=== PATIENT | female | born 1995 | race Caucasian/White ===

== ENCOUNTER 2024-07-23 14:26 | Outpatient (CLI) | payer BC, SELFPAY ==
--- NOTE | ~2024-07-23 | US_ITS ---
EXAMINATION: US pelvic complete w TV INDICATION: Pelvic and perineal pain Comparison:No prior studies for comparison. TECHNIQUE: Multiple transabdominal and endovaginal sonographic images of the pelvis performed. FINDINGS: The uterus measures 7 x 4.8 x 3.5 cm. There is a small amount of fluid in the endometrium e xtending to the cervix. The endometrial complex measures 14 mm. The right ovary is removed. Left ovary is not visualized. Small amount of free fluid in the pelvic cu l-de-sac. There is no free fluid in the pelvis. There are no abnormal masses seen on either side. IMPRESSION: 1. Thickened endometrium with trace endometrial fluid. Reviewed, dictated and finalized at location []
--- OUTSIDE RECORDS SUMMARY | 2024-07-23 14:30 | XMS_ITS | Data Portability ---
Author Organization [facility] [employer] , [facility] Address [address] [place] [address] Assessment No assessment recorded. Plan of Treatment Reminders Order Date Submit Date Provider Last Modified By Organization Details Last Modified Time Details Appointments None recorded. Lab test, urine 2024 025 [email or web address] [facility], [address] [place], [address], 12:50:49 Referral None recorded. Procedures None recorded. Surgeries None recorded. Imaging US, transvagina l 2024 025 [email or web address] Not available 13:40:27 Medication Orders None recorded. Patient TargetsNo targets recorded. Patient InstructionsNo instructions recorded. Reason for Referral None Reported. Results Created Date Observation Date Name Description Value Unit Range Abnormal Flag Note LastModifiedBy Organization Detail LastModifiedTime 04/18/1904/18/2024 pregn jewel test, urine HCG positi ve Not Available [facility] [address] [place], [address], 04/16/2024 20:58:17 04/09/1904/09/2024 US, obste tric No observ ation record ed. [email or web address] [address] [address], [place], [address], 04/10/2024 10:44:45 04/18/19 25 04/18/2024 US, trans vagin al No observ ation record ed. [email or web address] [facility] [address], [place], [address], 04/20/2024 08:03:53 Result Notes None recorded. Procedures Surgical History Date Name Laterality Status Provider Name and Address Organization Details Recorded Time 04/02/2024 Date of Last Pap Smear completed Meryl Perry [facility] 04/18/2024 11:44:57 Imaging Results Imaging Date Name Status LastModified by Organization Details LastModified Time 04/09/2024 US, obstetric completed [facility] [address], [place], [address], 04/10/2024 10:44:45 04/18/2024 US, transvaginal completed [email or web address] [address], [place], [address], 04/20/2024 08:03:53 Procedure Notes None recorded. Medical Equipment None Reported. Allergies Allergen ID Allergen Name Allergen Category Reaction Reaction Severity Criticality Documentation Date Start Date Code Code System Note Provider Name and Address Organization Details Recorded Time 537903 latex environme nt,medica tion Not available Not available Not available 04/18/2024 [id number] 91 RxNorm Meryl Perry [facility] 11:44:57 Medications Name Sig Start Date Stop Date Status Note LastModified by Organization Details LastModified Time BD Regular Bevel Tappan 27 gauge x 1/2 USE DIRECTED TO INJECT MENOPUR 04/18 completed Not Available Not Available Not Available celecoxib 200 mg capsule TAKE 1 CAPSULE BY MOUTH TWICE DAILY 04/18 completed Not Available Not Available Not Available medroxyprog esterone 10 mg tablet TAKE 1 TABLET BY MOUTH ONCE DAILY 04/18 completed Not Available Not Available Not Available azithromyci n 250 mg tablet TAKE 2 TABLETS BY MOUTH ON DAY 1, AND THEN TAKE 1 TABLET BY MOUTH ONCE A DAY ON DAY 2 THROUGH DAY 5 04/18 completed Not Available Not Available Not Available omeprazole 40 mg capsule,del ayed release TAKE 1 CAPSULE BY MOUTH ONCE DAILY 04/18 completed Not Available Not Available Not Available progesteron e 50 mg/mL intramuscul ar oil INJECT 1-2ML INTRAMUSC ULARLY IN THE EVENING DIRECTED ON CYCLE CALENDAR 04/18 completed Not Available Not Available Not Available dexamethaso ne 0.75 mg tablet TAKE 1 TABLET BY MOUTH ONCE DAILY DIRECTED 04/18 completed Not Available Not Available Not Available estradiol 2 mg tablet TAKE 1 TABLET BY MOUTH ONCE DAILY 04/18 completed Not Available Not Available Not Available folic acid 1 mg tablet TAKE 1 TABLET BY MOUTH ONCE DAILY DIRECTED 04/18 completed Not Available Not Available Not Available oxycodone-a cetaminophe n 7.5 mg-325 mg tablet TAKE 1 TABLET BY MOUTH TWICE DAILY NEEDED FOR PAIN 04/18 completed Not Available Not Available Not Available Cetrotide 0.25 mg subcutaneou s kit INJECT ONE SYRINGE SUBCUTANE OUSLY IN THE MORNING DIRECTED ON CYCLE CALENDAR 04/18 completed Not Available Not Available Not Available leuprolide 1 mg/0.2 mL subcutaneou s kit INJECT 5 TO 20 UNITS SUBCUTANE OUSLY EVERY MORNING DIRECTED ON CYCLE CALENDAR 04/18 completed Not Available Not Available Not Available Clomid 50 mg tablet TAKE 4 TABLETS BY MOUTH EVERY DAY FOR 5 DAYS DIRECTED 04/18 completed Not Available Not Available Not Available Alcohol Prep Pads USE DIRECTED 04/18 completed Not Available Not Available Not Available BD Regular Bevel Tappan 25 gauge x 1 1/2 USE DIRECTED TO INJECT NOVAREL 04/18 completed Not Available Not Available Not Available BD PrecisionGl jose luis 25 gauge x 1 needle USE DIRECTED TO INJECT NOVAREL 04/18 completed Not Available Not Available Not Available Menopur 75 unit subcutaneou s solution INJECT 2 VIALS (150IU) SUBCUTANE OUSLY IN THE EVENING DIRECTED ON CYCLE CALENDAR 04/18 completed Not Available Not Available Not Available ferrous fumarate active Not Available Not Available Not Available Easy Touch Insulin Syringe 0.5 mL 29 gauge x 1/2 DIRECTED TO INJECT LEUPROLID E 04/18 completed Not Available Not Available Not Available BD Luer-Frederic Syringe 1 mL USE DIRECTED TO MIX AND DRAW UP MENOPUR 04/18 completed Not Available Not Available Not Available BD Lo-Dose Micro-Fine IV 1/2 mL 28 gauge x 1/2 syringe USE DIRECTED TO INJECT CETROTIDE 04/18 completed Not Available Not Available Not Available Enskyce 0.15 mg-0.03 mg tablet TAKE 1 TABLET BY MOUTH ONCE DAILY. TAKE ONLY THE ACTIVE TABLETS SKIPPING PLACEBOS 04/18 completed Not Available Not Available Not Available Gonal-F RFF Redi-Ject 900 unit/1.5 mL subcutaneou s pen injector INJECT 300IU SUBCUTANE OUSLY DIRECTED ON CYCLE CALENDAR 04/18 completed Not Available Not Available Not Available Gonal-F RFF Redi-Ject 450 unit/0.75 mL subcutaneou s pen injector INJECT 450 UNITS SUBCUTANE OUSLY EVERY EVENING DIRECTED ON CYCLE CALENDAR 04/18 completed Not Available Not Available Not Available Gonal-F RFF Redi-Ject 300 unit/0.5 mL subcutaneou s pen injector INJECT 300IU SUBCUTANE OUSLY DIRECTED ON CYCLE CALENDAR 04/18 completed Not Available Not Available Not Available Vitamins Plus Low Iron 27 mg iron-1 mg tablet TAKE 1 TABLET BY MOUTH ONCE DAILY DIRECTED active Not Available Not Available No t Available Novarel 5,000 unit intramuscul ar solution INJECT 10,000IU INTRAMUSC ULARLY ONCE WHEN DIRECTED ON CYCLE CALENDAR 04/18 completed Not Available Not Available Not Available Vitals Date Recorded Body height Body mass index (BMI) Body weight Systolic blood pressure Diastolic blood pressure Provider Name and Address Organization Details Last Updated DateTime 04/18/2024 160.02 cm 22.7 kg/m2 44322.54 g 108 mm[Hg] 60 mm[Hg] Meryl Perry [facility] 11:44:16 Social History Question Answer Notes LastModified by Organizat ion Details LastModified Time Tobacco Smoking Status Never Smoker Meryl wong, [facility] 04/18/2024 11:44:58 If You Are , What Was Your Level Of Alcohol Consumption Prior To ? Occasional [email or web address] Information not available 04/18/2024 How Many Years Have You Consumed Alcohol? 3 [email or web address] Information not available 04/18/2024 Are You Blind Or Do You Have Difficulty Seeing? Yes Information not available 04/18/2024 Are You Deaf Or Do You Have Serious Difficulty Hearing? No [place] [address] Information not available 04/18/2024 What Type Of Diet Are You Following? REGULAR [place] [address] Information not available 04/18/2024 How Many Children Do You Have? 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 [email or web address] Information not available 04/18/2024 Are You Sexually Active? Yes [email or web address] Information not available 04/18/2024 Sex: Unknown Functional Status Question Answer Note LastModified by Organizat ion Details LastModified Time Do you use any illicit or recreational drugs? No [place] [address] Information not available 04/18/2024 What is your level of alcohol consumption? Occasional [email or web address] Information not available 04/18/2024 Are you currently employed? Yes [email or web address] Information not available 04/18/2024 What is your exercise level? None [place] [address] Information not available 04/18/2024 Mental Status None recorded. Family History Relationship Description Onset Age of this Age Resolved Age Notes LastModified by Organization Details LastModified Time Mother Malignant neoplasm of ovary [place] [address] Not available 04/18 11:44:57 Medical History Condition Response ADD/ADHD Y Anemia Y Gynecological History Statement/Question Response Flow Moderate Date of LMP 02/17/2024 Frequency of Cycle (Q days) 26 Date of Last Pap Smear 04/02/2024 Duration of Flow (days) 4 Current Control Method Age at Menarche 9 Obstetrics History GPAL:G 0 P 0 0 0 0 Past Encounters Encounter ID Performer Location Encounter Start Date Encounter Closed Date Diagnosis/Indication Diagnosis SNOMED-CT Code Diagnosis ICD10 Code Diagnosis Note [id number] Nusrat Johnson MD [facility] [address] [place] [address] 04/18/2024 11:11:07 04/18/2024 13:40:26 test positive [id number] Z32.01 Non-viable 237 119796 O02.89 Last US was with [facility] on 04/09/2024, heart tones were present.I have reviewed TVUS and discussed with patient, No FHT's noted on US today. -- Discussed the common nature of SAB as up to 20% of pregnancie s, the likely genetic cause, and the lack of fault or blame within these circumstan hiram. Discussed the fact that most likely this event will minimally impact future fertility. Discussed Management Options:Ex pectant Management , Medical Management , and D&C. Plan of Care-- Return Precaution s Given: Increased Bleeding- Soaking more than 1 pad in 1 hour for 2 consecutiv e hours, passing more than two lemon sized blood clots in 1 hour, fever/chil ls, severe pain, or other worrisome symptoms.- - Pt is unsure what she would like to proceed with. Educated that she does not have to decide right now. She can go home and think about it. She will call the clinic and/or send me a message on the portal to let me know what she has decided. The patient was initially evaluated by KAYLEN Epps, who completed the history examinatio n, and preliminar y assessment . I, Nusrat Johnson MD, entered the room to review and discuss the care plan with the patient. After reviewing the specific findings and documentat ion provided by Charmaine, I confirmed the diagnosis and care plan, addressing any additional concerns or questions raised by the patient. The final plan of care was developed collaborxavier martinez and has been documented accordingl y. Health Concerns Section Related Observation LastModified by Organization Detai ls LastModified Time None Recorded Concern Status LastModified by Organization Details LastModified Time None Recorded Advance Directives Directive None Recorded Payers Insurance Date Sequence Insurance Name Policy Number Policy Rush Covered Member ID Rush Member ID Guarantor Name 04/18/2024 1 [place] Diana Garcia [id number] Diana Garcia 04/24/2024 1 [place] [id number] Job Mccoy III [id number] Diana Garcia Notes Date Note Type Note Provider Name and Address Organization Details Recorded Time 04/18/2024 text/html Confirmation VisitReported bypatient.obstetric s and gynecologyLMP: (02/17/2024); no bleeding between periods; 1; US IUP Confirmed; EDC (LMP): (11/23/24); [place] (LMP): (10/08) Diana 29 y/o here for postive test at home. 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 Patient has had multiple failed IVF cycles and this happened on own. Denies any bleeding or cramping. Patient had US with [facility] on 04/09/2023 that showed IUP with heart tones. Presenting today to establish care and confirm KADIE. Nusrat Johnson MD [facility], [place], [address], [facility] 04/20/2024 08:19:42 OBGyn Episode No OBEpisode recorded.
== END 2024-07-23 14:27 | disposition home or self-care (01) ==
PROVIDERS: PCP Internal Medicine; Visit Provider Obstetrics & Gynecology
DX: R93.89 Abnormal findings on diagnostic imaging of other specified body structures (principal); R10.2 Pelvic and perineal pain
CPT/HCPCS: 76830; 76856